=== PATIENT | female | born 1950 | race Caucasian/White ===

== ENCOUNTER 2016-06-29 05:37 | Inpatient (IN) ==
[2016-06-28 11:14] LABS: Basophils % 0.2 % (0.0-0.8); Eosinophils # 0.2 10*3/uL (0.0-0.87); Eosinophils % 3.1 % (0.00-10.9); Hematocrit 41.7 VOL% (35.7-47.0); Hemoglobin 13.6 GM/DL (12.0-16.0); Immature Granulocytes % 0.3 %; Immature Granulocytes Absolute 0.02 #; Lymphocytes # 2.4 10*3/uL (1.4-4.0); Mean Corpuscular HGB Conc 32.6 GM/DL (32-36); Mean Corpuscular Hemoglobin 34 PG (27-34); Mean Corpuscular Volume 103.2 FL (87-102); Mean Platelet Volume 8.6 FL (9.6-12.0); Monocytes # 0.5 10*3/uL (0.11-0.8); Monocytes % 7.9 % (1.7-12.7); Neutrophils # 3.3 10*3/uL (1.4-7.4); Neutrophils % 51.5 % (38.7-73.9); Platelet Count 220 T/CUMM (130-400); Red Blood Count 4.04 MC/CUMM (3.8-5.5); Red Cell Distribution Width 14.6 % (9.3-17.3); White Blood Count 6.4 T/CUMM (4-12)
[2016-06-28 11:24] LABS: PT Patient Result 10.7 SECS
[2016-06-28 11:32] LABS: Apearance,Urine CLOUDY (Clear); Bacteria,Urine Occasional /HPF (Few); Bilirubin,Urine Negative (Negative); Blood, Urine Negative (Negative); Glucose,Urine (UA) Negative (Negative); Hyaline Casts,Urine 4 /LPF (0-3); Ketones,Urine Negative (Negative); Mucus,Urine Few /LPF (Occasional); Nitrite,Urine Negative (Negative); Protein,Urine Negative; RBC,Urine 2 /HPF (0-4); Squamous Epithelial Cell,Urine Occasional /HPF (0-10); Urine Color Yellow (Yellow); Urine Specific Gravity 1.013 (1.001-1.035); Urine Urobilinogen < 2.0 EU/DL (0.2-1.0); WBC,Urine 3 /HPF (0-6)
[2016-06-28 11:53] LABS: Albumin 4.1 G/DL (3.4-5.0); Bilirubin,Total 0.4 MG/DL (0.2-1.0); Calcium 9.3 MG/DL (8.5-10.1); Osmolality,Calculated 287.8 MOS/KG (273-304); Potassium 4.7 MMOL/L (3.5-5.1); Total Protein 6.9 G/DL (6.4-8.3)
--- NOTE | 2016-06-28 14:05 | XRay Report ---
XR chest 2V Date: 06/28/2016 10:45 AM History: Respiratory preoperative evaluation Comparison: 05/06/2012 Technique: PA and lateral chest Findings: The heart is normal in size with calcification in the aortic knob. Chronic scarring in the lungs with stable mediastinum. Minimal dextroscoliosis of the thoracic spine with degenerative changes. Prior cholecystectomy and augmentation mammoplasty. Impression: No acute cardiopulmonary pathology identified. PROCEDURE INTERPRETED AT [facility] DEPARTMENT OF RADIOLOGY Final Report Signed by: Dr. Kusum Moreno
[2016-06-29] MEDS ORDERED: VANCOMYCIN INJ 1,000 MG in SODIUM CHLORIDE 0.9% 250 ML IV ONE (06:00)
[2016-06-29] MEDS ORDERED: SODIUM CHLORIDE 0.9% 100 ML IV ONE (06:26)
[2016-06-29] MEDS ORDERED: VANCOMYCIN 1,000 MG VIAL ONE (06:26)
[2016-06-29] MEDS ORDERED: ceFAZolin 1,000 MG VIAL ONE (06:26)
[2016-06-29] MEDS ORDERED: LORazepam 1 MG TABLET PO ONE (06:31)
[2016-06-29] MEDS ORDERED: FAMOTIDINE 20 MG TABLET PO ONE (06:31)
--- NOTE | 2016-06-29 06:59 | History and Physical Update ---
History and Physical Update - History and Physical H&P was reviewed, the patient examined and there: are no changes in the patients condition since last H&P was completed.
[2016-06-29] MEDS ORDERED: FAMOTIDINE 20 MG TABLET ONE (07:21)
[2016-06-29] MEDS ORDERED: LORazepam 1 MG TABLET ONE (07:21)
[2016-06-29] MEDS ORDERED: LACTATED RINGERS 1,000 ML IV SCH (07:30)
[2016-06-29] MEDS ORDERED: PROPOFOL 200 MG/20 ML VIAL IV ONE (09:39)
[2016-06-29] MEDS ORDERED: LIDOCAINE 1% 5 ML VIAL ONE (09:39)
[2016-06-29] MEDS ORDERED: oxyCODONE/ACETAMINOPHEN 5-325 MG TABLET PO PRN ×2 (10:00)
[2016-06-29] MEDS ORDERED: diphenhydrAMINE CAP 25 MG CAPSULE PO PRN (10:00)
[2016-06-29] MEDS ORDERED: MAGNESIUM HYDROXIDE SUSP 30 ML UDCUP PO PRN (10:00)
[2016-06-29] MEDS ORDERED: MORPHINE 2 MG/1 ML SYRINGE IV PRN ×2 (10:00)
[2016-06-29] MEDS ORDERED: ZALEPLON 5 MG CAPSULE PO PRN (10:00)
[2016-06-29] MEDS ORDERED: ONDANSETRON 4 MG/2 ML VIAL IV PRN (10:00)
[2016-06-29] MEDS ORDERED: BACITRACIN OINT 0.9 GM PACK TOP ONE (10:25)
[2016-06-29] MEDS ORDERED: TRANEXAMIC ACID 1,000 MG/10 ML VIAL IV ONE (10:25)
--- NOTE | 2016-06-29 11:30 | Operative Note ---
Date of procedure: 06/29/16 Procedure: DIAGNOSIS: Bilateral hip osteoarthritis, primary PROCEDURE: Left total hip arthroplasty (CPT#61803) SURGEON: Ramakrishna ANESTHESIA: Spinal PROCEDURE and FINDINGS: After adequate anesthesia was induced, the patient was placed in lateral decubitus position. Left lower extremities prepped and draped in usual sterile fashion. Posterior lateral approach to the hip was made. Skin, subcutaneous tissue and deep fascia was incised longitudinally. Gluteus rolly muscle belly was split in line with its fibers. Piriformis, external rotators and capsule was taken down as a single layer as an inverted L shaped capsulotomy. Hip was dislocated. Templated femoral neck cut was made. Acetabulum was prepared by sequentially reaming to 49 mm. A 50 mm Continuum acetabular shell was press-fit with excellent stability. 1 6.5 millimeter screw was placed with an excellent bite. 32 mm neutral Longevity liner was placed with a dome hole plug. Femur was prepared sequentially with the box osteotome, canal finder and sequential broaches to 14. Components were trialed. A Versys fiber metal tapered stem size 14 was press-fit. A 32-3.5 mm head was placed. The component was stable posteriorly and anteriorly. Capsule and external rotators were repaired to the greater trochanter with #5 Tycron. Deep fascia was closed with 0 Vicryl [id number]-[id number]-hifqi suture. Subcutaneous tissue was closed deep with a 2-0 Vicryl runner and superficially with 3-0 interrupted buried sutures. Skin was closed with sotero. Bacitracin and a sterile occlusive dressing was applied. Surgeon / Physician: Jermain Durbin Jr. Results - Labs CBC & BMP: 06/28/16 11:07 06/28/16 11:07 Discharge Plan - Discharge Medications No Action Metoprolol Tartrate 25 mg PO BEDTIME Clopidogrel [Plavix] 75 mg PO DAILY Aspirin [Ecotrin] 81 mg PO DAILY Lisinopril 5 mg PO DAILY Famotidine 40 mg PO DAILY Citalopram Hydrobromide [Citalopram HBr] 40 mg PO DAILY Lovastatin 20 mg PO BEDTIME [place]-3 Fatty Acids [Fish Oil] 1,000 mg PO DAILY W/BREAKFAST Multivit-Min/FA/Lycopene/Lut [Centrum Silver Tablet] 1 tablet PO DAILY Ibuprofen 800 mg PO Q6-8H PRN PRN Reason: Pain Celecoxib [Celebrex] 200 mg PO DAILY Garlic 1,000 mg PO DAILY [place]-3 Fatty Acids [Fish Oil] 2,000 mg PO BEDTIME - Follow Up or Referral - Forms/Instructions
[2016-06-29 11:35] LABS: Apearance,Urine CLEAR (Clear); Bilirubin,Urine Negative (Negative); Blood, Urine Negative (Negative); Glucose,Urine (UA) Negative (Negative); Ketones,Urine Negative (Negative); Mucus,Urine Occasional /LPF (Occasional); Nitrite,Urine Negative (Negative); Protein,Urine Negative; RBC,Urine 2 /HPF (0-4); Urine Color Yellow (Yellow); Urine Urobilinogen < 2.0 EU/DL (0.2-1.0); WBC,Urine <1 /HPF (0-6)
--- NOTE | 2016-06-29 12:15 | XRay Report ---
Exam: XR hip 1V LT Date: 06/29/2016 10:02 AM Comparison: None Indication: Left hip replacement Technique:[AP left hip] Findings: Recent satisfactory left total hip replacement with postoperative findings. Impression: Recent satisfactory left total hip replacement. PROCEDURE INTERPRETED AT [facility] DEPARTMENT OF RADIOLOGY Final Report Signed by: Dr. Kusum Moreno
[2016-06-29] MEDS ORDERED: MIDAZOLAM 2 MG/2 ML VIAL ONE (13:00)
[2016-06-29] MEDS ORDERED: MORPHINE 10 MG/10 ML VIAL ONE (13:00)
[2016-06-29] MEDS ORDERED: fentaNYL 100 MCG/2 ML VIAL ONE (13:00)
--- NOTE | 2016-06-29 13:09 | Anesthesia ---
Anesthesia Post OP - Post Ansesthetic Evaluation Patient seen in post op: Yes Resp: within normal limits CV: within normal limits Mental: within normal limits Temp: within normal limits [id number]-[id number]: within normal limits Nausea and Vomiting: within normal limits Pain: within normal limits
[2016-06-29] MEDS: ACETAMINOPHEN 500 MG TABLET PO SCH ×2 (14:26→20:48)
[2016-06-29] MEDS: KETOROLAC 30 MG/1 ML VIAL IV SCH ×3 (14:27→22:37)
[2016-06-29] MEDS: LACTATED RINGERS 1,000 ML IV SCH ×2 (14:34→20:48)
--- NOTE | 2016-06-29 15:39 | Orthopedic Progress Note ---
Orthopedics - Subjective Interval history: comfortable. nv ok. dressing dry. mobilize with therapy. Exam - Constitutional Vitals: Period Temp Pulse Resp BP Sys/[place]as Pulse Ox Last 24 Hr 97.2 F-98.2 F 49-65 16-20 90-151/55-86 10-100 Results - Labs CBC & BMP: 06/28/16 11:07 06/28/16 11:07
[2016-06-29] MEDS: DOCUSATE SODIUM 100 MG CAPSULE PO SCH (20:49)
[2016-06-29] MEDS: METOPROLOL TARTRATE 25 MG TABLET PO SCH (20:49)
--- NOTE | 2016-06-29 22:02 | Internal Medicine Consult Note ---
Assessment and Plan (1) Low blood pressure, not hypotension Status: Acute Current Visit: Yes (2) Status post left hip replacement Status: Acute Current Visit: Yes (3) CAD (coronary artery disease) Status: Chronic Current Visit: Yes Qualifiers: Coronary Disease-Associated Artery/Lesion type: [place] artery [place] vs. transplanted heart: [place] heart Associated angina: without angina Qualified Code(s): I25.10 - Atherosclerotic heart disease of [place] coronary artery without angina pectoris (4) Stented coronary artery Status: Chronic Current Visit: Yes History of Present Illness - Data of Consult Consult date: 06/29/16 Requesting Physician: Jermain Durbin Jr. Primary care physician: Gabriela Dorman - Consult Narrative Reason for consult: courtesy History of present illness: Ms. Cervantes is a 65 year old female with history of OA, dyslipidemia, HTN, CAD with four stents placed, NE, Plavix therapy, who is here in hospital to have left hip arthroplasty per Dr. Durbin. She was to be seen in the clinic to establish, but elected to have hip replacement first. Will follow her here in hospital. CC: Jermain Durbin Jr., - Home Medications and Allergies Home Medications: Home Medications Medication Instructions Recorded Confirmed Type Aspirin [Ecotrin] 81 mg PO DAILY 10/18/15 06/29/16 History Citalopram Hydrobromide 40 mg PO DAILY 10/18/15 06/29/16 History [Citalopram HBr] Clopidogrel [Plavix] 75 mg PO DAILY 10/18/15 06/29/16 History Famotidine 40 mg PO DAILY 10/18/15 06/29/16 History Lisinopril 5 mg PO DAILY 10/18/15 06/29/16 History Lovastatin 20 mg PO BEDTIME 10/18/15 06/29/16 History Metoprolol Tartrate 25 mg PO BEDTIME 10/18/15 06/29/16 History [place]-3 Fatty Acids [Fish Oil] 1,000 mg PO DAILY W/BREAKFAST 10/18/15 06/29/16 History Multivit-Min/FA/Lycopene/Lut 1 tablet PO DAILY 12/22/15 06/29/16 History [Centrum Silver Tablet] Celecoxib [Celebrex] 200 mg PO DAILY 06/28/16 06/29/16 History Garlic 1,000 mg PO DAILY 06/28/16 06/29/16 History Ibuprofen 800 mg PO Q6-8H PRN 06/28/16 06/29/16 History [place]-3 Fatty Acids [Fish Oil] 2,000 mg PO BEDTIME 06/28/16 06/29/16 History Allergies/Adverse Reactions: Allergies Allergy/AdvReac Type Severity Reaction Status Date / Time codeine Allergy RASH Verified 10/18/15 14:49 - Musculoskeletal Musculoskeletal: Present: arthralgias Medical,Surgical,& Family Hx - Medical History Cardio: History of: CAD, Hypertension, NE (Over 10 yrs ago), 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) Psychological: History of: Anxiety Disorders Neurology: No history of: Seizures HEENT: History of: Dental Problems (Full Set Dentures) Endocrine: History of: Dyslipidemia Respiratory: No history of: Respiratory Problems (Flu Vac Fall 2015) Comment Only: Pneumonia (Pneum Vac Fall 2015) Gastrointestinal: History of: GERD Musculoskeletal: History of: Back/Neck Problems (Back Pain), Musculoskeletal Problems (OA) Other: No history of: Anesthesia Reactions, Cancer - Surgical History Cardiac Surgeries: Sugical HX of: Cardiac Catheterization (stent times 4) HEENT Surgeries: Surgical HX of: Eye Surgery (Bilateral Implants Catarcts) Abdominal Surgeries: Surgical HX of: Cholecystectomy, Colonoscopy, EGD Reproductive Surgeries: Surgical HX of;: Hysterectomy (Complete) Orthopedic Surgeries: Comment Only: Total Hip Replacement (06/29/[address] Durbin) - Family History Family History: Reports;: Family Heart Disease (Brother x2; Mother), Family Hypertension (Brothers), Family Stroke (Brother), Additional Family History ( Brother Aneurysm) Denies;: Family Anesthesia Reaction, Family Cancer, Family Diabetes, Family Hematology - Social History Smoking Status: Current every day smoker Frequency of Alcohol Use: Frequently Type of Drug Use: None Marital Status: Lives With:: Spouse Functional capacity: independent ambulation Exam (Progress Note) - Constitutional Vitals: Period Temp Pulse Resp BP Sys/Arias Pulse Ox Last 24 Hr 97.2 F-99.1 F 49-66 16-20 90-151/50-86 10-100 General appearance: no acute distress - Head Head exam: Present: normocephalic - Eye Eye exam: Present: EOMI - Respiratory Respiratory exam: Present: clear to auscultation bilaterally - Cardiovascular Cardiovascular exam: Present: regular rate and rhythm - GI/Abdominal GI/Abdominal exam: Present: soft. Absent: tenderness - Extremities Exam Extremities exam: Absent: edema - Neurological Exam Neurological exam: Present: other (awake; recent anesthesia) - Psychiatric Psychiatric exam: Present: normal mood - Skin Skin exam: Present: warm, dry Results - Labs CBC & BMP: 06/28/16 11:07 06/28/16 11:07
[2016-06-29] MEDS: LOVASTATIN 20 MG TABLET PO SCH (22:37)
[2016-06-29] MEDS: OMEGA 3 ACID ETHYL ESTERS 1 GM CAPSULE PO SCH (22:37)
[2016-06-30] MEDS: ACETAMINOPHEN 500 MG TABLET PO SCH ×2 (02:17→09:23)
[2016-06-30 03:42] LABS: Basophils % 0.2 % (0.0-0.8); Eosinophils # 0.2 10*3/uL (0.0-0.87); Eosinophils % 3.5 % (0.00-10.9); Hematocrit 32.5 VOL% (35.7-47.0); Hemoglobin 10.6 GM/DL (12.0-16.0); Immature Granulocytes % 0.3 %; Immature Granulocytes Absolute 0.02 #; Lymphocytes # 2.3 10*3/uL (1.4-4.0); Lymphocytes % 36.3 % (21.3-54.2); Mean Corpuscular HGB Conc 32.6 GM/DL (32-36); Mean Corpuscular Hemoglobin 33 PG (27-34); Mean Corpuscular Volume 102.2 FL (87-102); Mean Platelet Volume 8.9 FL (9.6-12.0); Monocytes # 0.6 10*3/uL (0.11-0.8); Neutrophils # 3.1 10*3/uL (1.4-7.4); Neutrophils % 49.7 % (38.7-73.9); Platelet Count 177 T/CUMM (130-400); Red Blood Count 3.18 MC/CUMM (3.8-5.5); Red Cell Distribution Width 14.8 % (9.3-17.3); White Blood Count 6.2 T/CUMM (4-12)
[2016-06-30 04:07] LABS: Calcium 8.1 MG/DL (8.5-10.1); Osmolality,Calculated 290.7 MOS/KG (273-304); Potassium 4.1 MMOL/L (3.5-5.1)
[2016-06-30] MEDS: KETOROLAC 30 MG/1 ML VIAL IV SCH (04:14)
[2016-06-30] MEDS: FONDAPARINUX 2.5 MG/0.5 ML SYRINGE SUBCUT SCH (06:12)
[2016-06-30] MEDS: LACTATED RINGERS 1,000 ML IV SCH (06:12)
--- NOTE | 2016-06-30 07:27 | Orthopedic Progress Note ---
Orthopedics - Subjective Interval history: comfortable dressing dry lle nv ok mobilize with therapy. Exam - Constitutional Vitals: Period Temp Pulse Resp BP Sys/Arias Pulse Ox Last 24 Hr 95.1 F-99.2 F 49-66 16-94 90-151/47-86 10-100 Results - Labs CBC & BMP: 06/30/16 03:28 06/30/16 03:28
--- NOTE | 2016-06-30 08:43 | Family Practice Progress Note ---
Family Practice - PN: Subj Interval history: Patient seen this morning and she is stable. Wound site looks good dressing is dry. She is not having any significant pain at present. No acute distress and has been eating fairly well. Vital signs are stable and her lab was noted. Exam (Progress Note) - Constitutional Vitals: Period Temp Pulse Resp BP Sys/Arias Pulse Ox Last 24 Hr 95.1 F-99.2 F 49-66 16-94 90-151/47-86 10-100 Exam: Generalized stable no acute distress is very alert and oriented HEENT negative neck supple trachea midline Lungs are clear no shortness of breath Abdomen soft nondistended Left hip dressing is intact and dry Results - Labs CBC & BMP: 06/30/16 03:28 06/30/16 03:28
[2016-06-30] MEDS ORDERED: LISINOPRIL 5 MG TABLET PO SCH (09:00)
[2016-06-30] MEDS ORDERED: ACETAMINOPHEN 500 MG TABLET ONE (09:11)
[2016-06-30] MEDS: DOCUSATE SODIUM 100 MG CAPSULE PO SCH ×3 (09:23→20:51)
[2016-06-30] MEDS: MULTIVITAMIN (CENTRUM) TABLET PO SCH (09:23)
[2016-06-30] MEDS: OMEGA 3 ACID ETHYL ESTERS 1 GM CAPSULE PO SCH ×2 (09:23→20:51)
[2016-06-30] MEDS: CITALOPRAM 40 MG TABLET PO SCH (09:24)
[2016-06-30] MEDS: ASPIRIN EC 81 MG TABLET PO SCH (09:24)
[2016-06-30] MEDS: FAMOTIDINE 20 MG TABLET PO SCH (09:24)
[2016-06-30] MEDS: Garlic [Garlic] 1,000 MG PO SCH (09:26)
[2016-06-30] MEDS ORDERED: ACETAMINOPHEN 325 MG TABLET PO PRN (10:01)
[2016-06-30] MEDS: METOPROLOL TARTRATE 25 MG TABLET PO SCH (20:51)
[2016-06-30] MEDS: LOVASTATIN 20 MG TABLET PO SCH (20:52)
[2016-07-01 03:44] LABS: Basophils % 0.1 % (0.0-0.8); Eosinophils # 0.2 10*3/uL (0.0-0.87); Eosinophils % 2.3 % (0.00-10.9); Hematocrit 34.4 VOL% (35.7-47.0); Hemoglobin 11.6 GM/DL (12.0-16.0); Immature Granulocytes % 0.5 %; Immature Granulocytes Absolute 0.04 #; Lymphocytes # 2.3 10*3/uL (1.4-4.0); Lymphocytes % 25.7 % (21.3-54.2); Mean Corpuscular HGB Conc 33.7 GM/DL (32-36); Mean Corpuscular Hemoglobin 33 PG (27-34); Mean Corpuscular Volume 98.6 FL (87-102); Mean Platelet Volume 9.4 FL (9.6-12.0); Monocytes # 0.8 10*3/uL (0.11-0.8); Monocytes % 9.5 % (1.7-12.7); Neutrophils # 5.5 10*3/uL (1.4-7.4); Neutrophils % 61.9 % (38.7-73.9); Platelet Count 200 T/CUMM (130-400); Red Blood Count 3.49 MC/CUMM (3.8-5.5); Red Cell Distribution Width 14.7 % (9.3-17.3); White Blood Count 8.8 T/CUMM (4-12)
[2016-07-01] MEDS: FONDAPARINUX 2.5 MG/0.5 ML SYRINGE SUBCUT SCH (06:08)
--- NOTE | 2016-07-01 07:31 | Orthopedic Progress Note ---
Orthopedics - Subjective Interval history: Able to walk in [place] yesterday. Complaining of pain. dressing dry. nv ok. Continue therapy. Discharge planning. Exam - Constitutional Vitals: Period Temp Pulse Resp BP Sys/Arias Pulse Ox Last 24 Hr 95 F-98.4 F 63-72 16-20 97-144/59-74 92-98 Results - Labs CBC & BMP: 07/01/16 03:26 06/30/16 03:28
--- NOTE | 2016-07-01 07:51 | Discharge Summary ---
Hospital Course - Hospital Course Hospital Course: Mrs. Cervantes was admitted after undergoing an uncomplicated left total hip arthroplasty. She received perioperative DVT and antimicrobial prophylaxis. She received physical therapy. nv ok. scant ss drainage. Discharge Plan - Discharge Data Discharge Diet: advance to your usual diet Activity: ambulate only with your walker Hygiene: may shower Weight Bearing at Discharge: weight bear as tolerated - Discharge Medications Continue Metoprolol Tartrate 25 mg PO BEDTIME Clopidogrel [Plavix] 75 mg PO DAILY Aspirin [Ecotrin] 81 mg PO DAILY Lisinopril 5 mg PO DAILY Famotidine 40 mg PO DAILY Citalopram Hydrobromide [Citalopram HBr] 40 mg PO DAILY Lovastatin 20 mg PO BEDTIME [place]-3 Fatty Acids [Fish Oil] 1,000 mg PO DAILY W/BREAKFAST Multivit-Min/FA/Lycopene/Lut [Centrum Silver Tablet] 1 tablet PO DAILY Celecoxib [Celebrex] 200 mg PO DAILY Garlic 1,000 mg PO DAILY [place]-3 Fatty Acids [Fish Oil] 2,000 mg PO BEDTIME Discontinued Ibuprofen 800 mg PO Q6-8H PRN PRN Reason: Pain - Follow Up or Referral - Forms/Instructions Additional Discharge Instructions: Posterior hip precautions for 3 months. Daily dry dressing changes. Arrange for walker and bedside commode for home use. Wear AMY hose for 1 month. Follow-up appointment in 4 weeks. Prescription for [place] 7.5-3 tablets was written. Restart Plavix tomorrow. Discontinue sotero and Steri-Strip wound on July 13, 2016. Prescription for [place] 7.5 with 30 tablets was written. Exam - Constitutional Vitals: Period Temp Pulse Resp BP Sys/Arias Pulse Ox Last 24 Hr 95 F-98.4 F 63-72 16-20 97-144/59-74 92-98 Discharge Results Procedures and tests throughout hospitalization: Pending Orders 07/02/16 04:00 Comp Blood Count Auto Diff IN AM Labs on day of discharge: Labs from last 24 hours 07/01/16 03:26 WBC 8.8 D RBC 3.49 L Hgb 11.6 L Hct 34.4 L MCV 98.6 MCH 33 MCHC 33.7 RDW 14.7 Plt Count 200 MPV 9.4 L Neut % (Auto) 61.9 Lymph % (Auto) 25.7 [place] % (Auto) 9.5 Eos % (Auto) 2.3 Baso % (Auto) 0.1 Neut # (Auto) 5.5 Lymph # (Auto) 2.3 [place] # (Auto) 0.8 Eos # (Auto) 0.2 Baso # (Auto) 0.0 Immature Gran % 0.5 Nucleated RBC % 0.0 Immature Gran # 0.04 Nucleated RBCs # 0.00 DS: Provider Date of admission: 06/29/16 10:00 Primary care physician: Gabriela Dorman DO Attending physician on admission: Jermain Durbin Jr., Consults: 06/29/16 10:00 Consult to Case Mgmt/Social Srvs [CONS] Routine Reason for Case Mgmt/Social Srvs: Rehab Home Health Equipment Consult Comment: Bedside Commode, CPM, Walker Consult to Occupational Therapy [CONS] Routine Reason for Occupational Therapy: Evaluate and Treat Consult Comment: ADL's Consult to Physical Therapy [CONS] Routine Reason for Physical Therapy: Evaluate and Treat Gait Training Start Therapy: Today Consult Comment: hip precautions, wbat 06/29/16 12:58 Consult to Pharmacy [CONS] Routine Reason for Pharmacy Consult: Adjust Meds Renal Funct 06/29/16 15:38 Consult to Physician [CONS] Routine Comment: courtesy, s/p left rudolph Consulting Provider: Gabriela Dorman Consult Notification Comment: pt known to physician; physician saw pt on and report made 06/29/16 16:25 Consult to Pastoral Services [CONS] Routine Comment: Pastoral Screen: Declines Visit Pastoral Screen Source of Request: Family Discharging clinician: Jermain Durbin Jr., Expected date of discharge: 07/02/16
[2016-07-01] MEDS: OMEGA 3 ACID ETHYL ESTERS 1 GM CAPSULE PO SCH ×2 (10:47→20:36)
[2016-07-01] MEDS: CITALOPRAM 40 MG TABLET PO SCH (10:48)
[2016-07-01] MEDS: ASPIRIN EC 81 MG TABLET PO SCH (10:48)
[2016-07-01] MEDS: FAMOTIDINE 20 MG TABLET PO SCH (10:48)
[2016-07-01] MEDS: MULTIVITAMIN (CENTRUM) TABLET PO SCH (10:48)
[2016-07-01] MEDS: Garlic [Garlic] 1,000 MG PO SCH (10:49)
[2016-07-01] MEDS: DOCUSATE SODIUM 100 MG CAPSULE PO SCH ×2 (10:49→21:26)
--- NOTE | 2016-07-01 10:52 | Family Practice Progress Note ---
Family Practice - PN: Subj Interval history: Patient seen this morning. She is doing well except for a little bit of pain, which is to be expected. Denies any fever chills nausea vomiting or diarrhea. Has been up and having good bowel and bladder function. His wound site looks good and H&H's stable Exam (Progress Note) - Constitutional Vitals: Period Temp Pulse Resp BP Sys/Arias Pulse Ox Last 24 Hr 95 F-98.4 F 63-72 16-20 107-144/60-74 93-98 Exam: Generalized stable no acute distress is very alert and oriented HEENT negative neck supple trachea midline Lungs are clear no shortness of breath Abdomen soft nondistended Left hip dressing is intact and dry Results - Labs CBC & BMP: 07/01/16 03:26 06/30/16 03:28 Assessment and Plan (1) Low blood pressure, not hypotension Status: Acute Assessment and plan: 07/01/2016: Stable vitals are present Current Visit: Yes (2) Status post left hip replacement Status: Acute Assessment and plan: 07/01/2016: Hip site and dressing in tact and doing well, patient has been up Current Visit: Yes (3) CAD (coronary artery disease) Status: Chronic Assessment and plan: 3191 7: No chest pain Current Visit: Yes Qualifiers: Coronary Disease-Associated Artery/Lesion type: [place] artery [place] vs. transplanted heart: [place] heart Associated angina: without angina Qualified Code(s): I25.10 - Atherosclerotic heart disease of [place] coronary artery without angina pectoris
[2016-07-01] MEDS: LOVASTATIN 20 MG TABLET PO SCH (20:36)
[2016-07-01] MEDS: METOPROLOL TARTRATE 25 MG TABLET PO SCH (20:37)
[2016-07-02 05:58] LABS: Basophils % 0.2 % (0.0-0.8); Eosinophils # 0.2 10*3/uL (0.0-0.87); Eosinophils % 3.1 % (0.00-10.9); Hematocrit 36.2 VOL% (35.7-47.0); Immature Granulocytes % 0.5 %; Immature Granulocytes Absolute 0.03 #; Lymphocytes # 2.2 10*3/uL (1.4-4.0); Lymphocytes % 33.2 % (21.3-54.2); Mean Corpuscular HGB Conc 33.1 GM/DL (32-36); Mean Corpuscular Hemoglobin 34 PG (27-34); Mean Corpuscular Volume 101.7 FL (87-102); Mean Platelet Volume 9.2 FL (9.6-12.0); Monocytes # 0.7 10*3/uL (0.11-0.8); Monocytes % 10.8 % (1.7-12.7); Neutrophils # 3.4 10*3/uL (1.4-7.4); Neutrophils % 52.2 % (38.7-73.9); Platelet Count 213 T/CUMM (130-400); Red Blood Count 3.56 MC/CUMM (3.8-5.5); Red Cell Distribution Width 14.8 % (9.3-17.3); White Blood Count 6.5 T/CUMM (4-12)
[2016-07-02] MEDS: FONDAPARINUX 2.5 MG/0.5 ML SYRINGE SUBCUT SCH (06:15)
[2016-07-02] MEDS: OMEGA 3 ACID ETHYL ESTERS 1 GM CAPSULE PO SCH (08:58)
[2016-07-02] MEDS: ASPIRIN EC 81 MG TABLET PO SCH (08:58)
[2016-07-02] MEDS: MULTIVITAMIN (CENTRUM) TABLET PO SCH (08:58)
[2016-07-02] MEDS: CITALOPRAM 40 MG TABLET PO SCH (08:58)
[2016-07-02] MEDS: DOCUSATE SODIUM 100 MG CAPSULE PO SCH (08:58)
[2016-07-02] MEDS: FAMOTIDINE 20 MG TABLET PO SCH (08:59)
--- NOTE | 2016-07-02 10:18 | Pathology Report from [facility] ---
ACCESSION # : [id number] PATIENT NAME : Aristeo Cervantes ORDERING DR : CRISTINA POWELL MD CLINICAL HX: LT hip osteoarthritis POST-OP DX: Same SPECIMEN INFO: LT hip bone & tissue GROSS DESCRIPTION: Received in formalin labeled "ARISTEO CERVANTES" consists of a 3.9 x 4.2 x 5.1 cm femoral head. The articular surface is degenerative with peripheral osteophyte formation and cartilage lipping present with an approx. 2 cm area that can be partially lifted away and may represent surgical manipulation. The cut surface is smooth mckinney and trabeculated with mild bone softening appreciated. Retail Assistant Manager sections are submitted in one cassette following decalcification. DIAGNOSIS FOR ARISTEO CERVANTES: Left hip joint showing changes of degenerative joint disease/ osteoarthritis. SERVICE DATE: 06/29/2016 REPORT DATE: 07/02/2016 PATHOLOGIST: Yifan Pastrana M.D. [facility] SYSTEM[facility]imy
[2016-07-02 15:40] VITALS: BP 110/64
== END 2016-07-02 14:15 | disposition home or self-care (01) | DRG 470 ==
LOC: N.OR 05:37 → N.SDSINP 05:38 → N.3E 10:00 → EDSTATUS 10:00 → N.3E 12:43
PROVIDERS: ADMIT Orthopaedic Surgery; ATTEND Orthopaedic Surgery

== ENCOUNTER 2016-10-22 05:36 | Inpatient (IN) ==
[2016-10-05 10:45] LABS: Basophils % 0.4 % (0.0-0.8); Eosinophils # 0.3 10*3/uL (0.0-0.87); Eosinophils % 6.1 % (0.00-10.9); Hematocrit 42.8 VOL% (35.7-47.0); Hemoglobin 14.8 GM/DL (12.0-16.0); Immature Granulocytes % 0.2 %; Immature Granulocytes Absolute 0.01 #; Lymphocytes # 2.4 10*3/uL (1.4-4.0); Mean Corpuscular HGB Conc 34.6 GM/DL (32-36); Mean Corpuscular Hemoglobin 34 PG (27-34); Mean Corpuscular Volume 98.6 FL (87-102); Mean Platelet Volume 8.8 FL (9.6-12.0); Monocytes # 0.5 10*3/uL (0.11-0.8); Monocytes % 10.2 % (1.7-12.7); Neutrophils % 38.1 % (38.7-73.9); Platelet Count 250 T/CUMM (130-400); Red Blood Count 4.34 MC/CUMM (3.8-5.5); Red Cell Distribution Width 13.1 % (9.3-17.3); White Blood Count 5.2 T/CUMM (4-12)
[2016-10-05 10:57] LABS: Apearance,Urine CLOUDY (Clear); Bacteria,Urine Occasional /HPF (Few); Bilirubin,Urine Negative (Negative); Blood, Urine Small mg/dL (Negative); Glucose,Urine (UA) Negative (Negative); Ketones,Urine Negative (Negative); Mucus,Urine Occasional /LPF (Occasional); Nitrite,Urine Negative (Negative); Protein,Urine Negative; RBC,Urine 5 /HPF (0-4); Squamous Epithelial Cell,Urine Occasional /HPF (0-10); Urine Color Yellow (Yellow); Urine Specific Gravity 1.015 (1.001-1.035); Urine Urobilinogen < 2.0 EU/DL (0.2-1.0); WBC,Urine 1 /HPF (0-6)
--- NOTE | 2016-10-05 11:01 | XRay Report ---
XR chest 2V Indication: Respiratory preoperative evaluation Comparison: None available Findings: The heart and mediastinum are normal in size and configuration. The pulmonary vascularity is normal in caliber. No lung infiltrates, effusions, pneumothorax or other abnormality is demonstrated. Impression: Normal chest x-ray PROCEDURE INTERPRETED AT [facility] DEPARTMENT OF RADIOLOGY Final Report Signed by: Dr. Jeffrey Pompa
[2016-10-05 11:09] LABS: Eosinophils 10 % (0-10); Lymphocytes 53 % (20-55); Segmented Neutrophils 27 % (50-85); Total Cells Counted 100
[2016-10-05 11:10] LABS: Hypochromasia 1+; Platelet Estimate Normal
[2016-10-05 11:30] LABS: Calcium 9.7 MG/DL (8.5-10.1); Osmolality,Calculated 278.5 MOS/KG (273-304); Potassium 4.7 MMOL/L (3.5-5.1); Total Protein 7.2 G/DL (6.4-8.3)
--- NOTE | 2016-10-05 12:03 | EKG Report ---
Stationary ECG Study [facility] Test Date: 10/05/2016 11:03:43 AM Pat Name: ARISTEO PONCE Department: Room: Gender: F Chiropractic Care: ARI 10-22-16 : 1950 Requested by: Jermain Barnes Order Number: [id number] Lidia MD: MIKI CHAVEZ Intervals [place] Rate: 58 P: 64 AR: 164 QRS: 73 QRSD: 83 T: 64 QT: 429 QTc: 427 Interpretive Statements SINUS RHYTHM Electronically Signed On 10-05-16 13:51:16 CDT by MIKI CHAVEZ [email or web address]
[2016-10-22] MEDS ORDERED: VANCOMYCIN INJ 1,000 MG in SODIUM CHLORIDE 0.9% 250 ML IV ONE ×2 (06:00→17:59)
[2016-10-22] MEDS ORDERED: FAMOTIDINE 20 MG/2 ML VIAL IV ONE ×2 (06:30→07:15)
[2016-10-22] MEDS ORDERED: LORazepam 1 MG TABLET PO ONE (06:30)
[2016-10-22] MEDS ORDERED: BACITRACIN OINT 0.9 GM PACK TOP ONE (06:32)
[2016-10-22] MEDS ORDERED: TRANEXAMIC ACID 1,000 MG/10 ML VIAL IV ONE (06:41)
--- NOTE | 2016-10-22 06:52 | History and Physical Update ---
History and Physical Update - History and Physical H&P was reviewed, the patient examined and there: are no changes in the patients condition since last H&P was completed. - Physical Exam Mental Status: alert and oriented Heart: regular rate and rhythm Lung: clear to auscultation
[2016-10-22] MEDS ORDERED: ceFAZolin 1,000 MG VIAL ONE (06:53)
[2016-10-22] MEDS ORDERED: LORazepam 1 MG TABLET ONE (06:53)
[2016-10-22] MEDS ORDERED: VANCOMYCIN 1,000 MG VIAL ONE (06:53)
[2016-10-22] MEDS ORDERED: FAMOTIDINE 20 MG TABLET ONE (06:54)
[2016-10-22] MEDS ORDERED: SODIUM CHLORIDE 0.9% 100 ML IV ONE (06:54)
[2016-10-22] MEDS ORDERED: MORPHINE 10 MG/10 ML VIAL ONE (07:16)
[2016-10-22] MEDS ORDERED: LACTATED RINGERS 1,000 ML IV SCH (07:30)
[2016-10-22] MEDS ORDERED: PHENYLEPHRINE 1 MG/10 ML SYRINGE IV ONE (08:07)
[2016-10-22] MEDS ORDERED: PROPOFOL 200 MG/20 ML VIAL IV ONE (08:07)
[2016-10-22] MEDS ORDERED: diphenhydrAMINE 50 MG/1 ML VIAL IV PRN (09:09)
[2016-10-22] MEDS ORDERED: ONDANSETRON 4 MG/2 ML VIAL IV PRN (09:09)
[2016-10-22] MEDS ORDERED: hydrOXYzine HCL 25 MG/1 ML VIAL IM PRN (09:09)
--- NOTE | 2016-10-22 09:56 | Anesthesia Post-Op ---
Anesthesia Post OP - Post Ansesthetic Evaluation Patient seen in post op: Yes Resp: within normal limits CV: within normal limits Mental: within normal limits Temp: within normal limits Jdzl-[id number]-[id number]: within normal limits Nausea and Vomiting: within normal limits Pain: within normal limits
[2016-10-22] MEDS ORDERED: MAGNESIUM HYDROXIDE SUSP 30 ML UDCUP PO PRN (09:58)
[2016-10-22] MEDS ORDERED: oxyCODONE IR 5 MG TABLET PO PRN ×2 (09:58)
[2016-10-22] MEDS ORDERED: diphenhydrAMINE CAP 25 MG CAPSULE PO PRN (09:58)
[2016-10-22] MEDS ORDERED: MORPHINE 2 MG/1 ML SYRINGE IV PRN ×2 (09:58)
[2016-10-22] MEDS ORDERED: MIDAZOLAM 2 MG/2 ML VIAL ONE (10:00)
[2016-10-22] MEDS ORDERED: fentaNYL 100 MCG/2 ML VIAL ONE (10:01)
[2016-10-22] MEDS ORDERED: KETAMINE 500 MG/10 ML VIAL ONE (10:01)
[2016-10-22 10:04] LABS: Apearance,Urine CLEAR (Clear); Bilirubin,Urine Negative (Negative); Blood, Urine Small mg/dL (Negative); Glucose,Urine (UA) Negative (Negative); Ketones,Urine Negative (Negative); Mucus,Urine Occasional /LPF (Occasional); Nitrite,Urine Negative (Negative); Protein,Urine Negative; RBC,Urine 1 /HPF (0-4); Urine Color Straw (Yellow); Urine Specific Gravity 1.006 (1.001-1.035); Urine Urobilinogen < 2.0 EU/DL (0.2-1.0)
--- NOTE | 2016-10-22 10:06 | Operative Note ---
Date of procedure: 10/22/16 Procedure: DIAGNOSIS: Right hip primary osteoarthritis PROCEDURE: Right total hip arthroplasty (CPT#47185) SURGEON: Ramakrishna ANESTHESIA: Spinal PROCEDURE and FINDINGS: After adequate anesthesia was induced, the patient was placed in lateral decubitus position. Left lower extremities prepped and draped in usual sterile fashion. Posteriolateral approach to the hip was made. Skin, subcutaneous tissue and deep fascia was incised longitudinally. Gluteus rolly muscle belly was split in line with its fibers. Piriformis, external rotators and capsule were taken down as a single layer as an inverted L shaped capsulotomy. Hip was dislocated. Templated femoral neck cut was made. Acetabulum was prepared by sequentially reaming to 51 mm. A 52 mm Continuum acetabular shell was press-fit with excellent stability. 1 6.5 millimeter screw was placed with an excellent bite. 32 mm neutral Longevity liner was placed with a dome hole plug. Femur was prepared sequentially with the box osteotome, canal finder and sequential broaches to 14. Components were trialed. A size 14 Versys fiber metal tapered stem was press-fit. A 32-3.5 mm head was placed. The component was stable posteriorly and anteriorly. Capsule was repaired to itself with #5 Tycron. During preparation of the femur, the posterior portion of the greater trochanter was fractured. Ordeiu-aw-zwocb #5 Tycron was used through the vastus lateralis aponeurosis and gluteus medius tendon to protect the fracture. Deep fascia was closed with 0 Vicryl figure-of- eight suture. Subcutaneous tissue was closed deep with a 2-0 Vicryl runner and superficially with 3-0 interrupted buried sutures. Skin was closed with sotero. Bacitracin and a sterile occlusive dressing was applied. Surgeon / Physician: Jermain Durbin Jr. Results - Labs CBC & BMP: 10/05/16 10:32 10/05/16 10:32 Discharge Plan - Discharge Medications No Action Metoprolol Tartrate 25 mg PO BEDTIME Clopidogrel [Plavix] 75 mg PO DAILY Aspirin [Ecotrin] 81 mg PO DAILY Lisinopril 5 mg PO DAILY Famotidine 40 mg PO DAILY Citalopram Hydrobromide [Citalopram HBr] 40 mg PO DAILY Lovastatin 20 mg PO BEDTIME [place]-3 Fatty Acids [Fish Oil] 1,000 mg PO DAILY W/BREAKFAST Multivit-Min/FA/Lycopen/Lutein [Centrum Silver Tablet] 1 tablet PO DAILY Celecoxib [Celebrex] 200 mg PO DAILY Garlic 1,000 mg PO DAILY Ibuprofen 800 mg PO Q8HR PRN PRN Reason: Pain - Follow Up or Referral - Forms/Instructions
--- NOTE | 2016-10-22 11:00 | XRay Report ---
XR hip 1V RT Clinical Information: Joint replacement (right hip), Postop Comparison: Prior radiographs06/29/2016 Findings: Postsurgical changes are noted with right total hip arthroplasty hardware now noted in place. Overlying soft tissue sotero are noted. There is minimal gas and soft tissue thickening about the greater trochanter, as expected. No suspicious osseous or soft tissue lesions are identified. Impression: Post surgical changes without evidence of acute convocation. PROCEDURE INTERPRETED AT [facility] DEPARTMENT OF RADIOLOGY Final Report Signed by: Darrin Guevara
[2016-10-22] MEDS: KETOROLAC 30 MG/1 ML VIAL IV SCH ×3 (11:25→21:15)
[2016-10-22] MEDS: LACTATED RINGERS 1,000 ML IV SCH ×2 (11:28→20:18)
[2016-10-22] MEDS: ACETAMINOPHEN 500 MG TABLET PO SCH ×2 (13:09→20:22)
--- NOTE | 2016-10-22 14:10 | Orthopedic Progress Note ---
Orthopedics - Subjective Interval history: comfortable. nv ok. dressing dry. continue per orders. Exam - Constitutional Vitals: Period Temp Pulse Resp BP Sys/Arias Pulse Ox Last 24 Hr 97.0 F-98.2 F 51-77 14-20 75-127/44-84 94-100 Results - Labs CBC & BMP: 10/05/16 10:32 10/05/16 10:32 Quality Measures - VTE Contraindication to Pharmacological VTE Prophylaxis: Already on Theraputic Agent , No Prophylaxis Needed
[2016-10-22] MEDS: DOCUSATE SODIUM 100 MG CAPSULE PO SCH (20:23)
[2016-10-22] MEDS: LOVASTATIN 20 MG TABLET PO SCH (20:23)
[2016-10-22] MEDS: METOPROLOL TARTRATE 25 MG TABLET PO SCH (20:23)
[2016-10-23] MEDS: ACETAMINOPHEN 500 MG TABLET PO SCH ×2 (01:18→08:01)
[2016-10-23] MEDS: KETOROLAC 30 MG/1 ML VIAL IV SCH (03:28)
[2016-10-23 06:21] LABS: Basophils % 0.2 % (0.0-0.8); Eosinophils # 0.2 10*3/uL (0.0-0.87); Eosinophils % 3.1 % (0.00-10.9); Hematocrit 33.5 VOL% (35.7-47.0); Hemoglobin 11.2 GM/DL (12.0-16.0); Immature Granulocytes % 0.3 %; Immature Granulocytes Absolute 0.02 #; Lymphocytes % 31.5 % (21.3-54.2); Mean Corpuscular HGB Conc 33.4 GM/DL (32-36); Mean Corpuscular Hemoglobin 34 PG (27-34); Mean Corpuscular Volume 100.3 FL (87-102); Mean Platelet Volume 9.5 FL (9.6-12.0); Monocytes # 0.7 10*3/uL (0.11-0.8); Monocytes % 10.9 % (1.7-12.7); Neutrophils # 3.5 10*3/uL (1.4-7.4); Platelet Count 174 T/CUMM (130-400); Red Blood Count 3.34 MC/CUMM (3.8-5.5); Red Cell Distribution Width 13.6 % (9.3-17.3); White Blood Count 6.4 T/CUMM (4-12)
[2016-10-23 06:47] LABS: Calcium 8.8 MG/DL (8.5-10.1); Potassium 3.8 MMOL/L (3.5-5.1)
[2016-10-23 07:15] LABS: Band Neutrophils 6 % (0-10); Eosinophils 3 % (0-10); Lymphocytes 49 % (20-55); Segmented Neutrophils 31 % (50-85); Total Cells Counted 100
[2016-10-23 07:16] LABS: Hypochromasia 1+; Platelet Estimate Adequate; Target Cells Slight
[2016-10-23] MEDS: LACTATED RINGERS 1,000 ML IV SCH (07:21)
--- NOTE | 2016-10-23 07:29 | Orthopedic Progress Note ---
Orthopedics - Subjective Interval history: comfortable. nv ok. dressing dry. mobilize with therapy. plan home with hh. d/c smith Exam - Constitutional Vitals: Period Temp Pulse Resp BP Sys/Arias Pulse Ox Last 24 Hr 96.4 F-98.5 F 53-81 14-20 75-118/44-84 94-100 Results - Labs CBC & BMP: 10/23/16 05:58 10/23/16 05:58 Quality Measures - VTE Contraindication to Pharmacological VTE Prophylaxis: Already on Theraputic Agent , No Prophylaxis Needed
[2016-10-23] MEDS: OMEGA 3 ACID ETHYL ESTERS 1 GM CAPSULE PO SCH (08:01)
[2016-10-23] MEDS: DOCUSATE SODIUM 100 MG CAPSULE PO SCH ×2 (08:01→21:31)
[2016-10-23] MEDS: CITALOPRAM 40 MG TABLET PO SCH (08:01)
[2016-10-23] MEDS: MULTIVITAMIN (CENTRUM) TABLET PO SCH (08:01)
[2016-10-23] MEDS: CLOPIDOGREL 75 MG TABLET PO SCH (08:01)
[2016-10-23] MEDS: ASPIRIN EC 81 MG TABLET PO SCH (08:02)
[2016-10-23] MEDS: LISINOPRIL 5 MG TABLET PO SCH (08:02)
[2016-10-23] MEDS: FAMOTIDINE 20 MG TABLET PO SCH (08:02)
[2016-10-23] MEDS: CELECOXIB 200 MG CAPSULE PO SCH (15:17)
[2016-10-23] MEDS: METOPROLOL TARTRATE 25 MG TABLET PO SCH (21:31)
[2016-10-23] MEDS: LOVASTATIN 20 MG TABLET PO SCH (21:32)
[2016-10-24 06:14] LABS: Basophils % 0.1 % (0.0-0.8); Eosinophils # 0.2 10*3/uL (0.0-0.87); Hematocrit 34.5 VOL% (35.7-47.0); Hemoglobin 11.9 GM/DL (12.0-16.0); Immature Granulocytes % 0.4 %; Immature Granulocytes Absolute 0.03 #; Lymphocytes # 1.7 10*3/uL (1.4-4.0); Lymphocytes % 21.2 % (21.3-54.2); Mean Corpuscular HGB Conc 34.5 GM/DL (32-36); Mean Corpuscular Hemoglobin 34 PG (27-34); Mean Corpuscular Volume 99.1 FL (87-102); Mean Platelet Volume 9.4 FL (9.6-12.0); Monocytes # 0.9 10*3/uL (0.11-0.8); Monocytes % 11.6 % (1.7-12.7); Neutrophils # 5.2 10*3/uL (1.4-7.4); Neutrophils % 64.7 % (38.7-73.9); Platelet Count 181 T/CUMM (130-400); Red Blood Count 3.48 MC/CUMM (3.8-5.5); Red Cell Distribution Width 13.5 % (9.3-17.3)
[2016-10-24 06:43] LABS: Hypochromasia Slight
--- NOTE | 2016-10-24 07:38 | Discharge Summary ---
Hospital Course - Hospital Course Hospital Course: Gabriela Cervantes was admitted after undergoing an uncomplicated right total hip arthroplasty. She received perioperative DVT and antimicrobial prophylaxis. She received physical therapy. She was discharged home in stable condition. Her dressing is clean, dry and intact. Right lower extremities neurovascularly unchanged. Discharge Plan - Discharge Data Disposition: Home Health Service Discharge Diet: advance to your usual diet Hygiene: may shower Weight Bearing at Discharge: weight bear as tolerated Driving: not until seen by doctor - Discharge Medications Continue Metoprolol Tartrate 25 mg PO BEDTIME Clopidogrel [Plavix] 75 mg PO DAILY Aspirin [Ecotrin] 81 mg PO DAILY Lisinopril 5 mg PO DAILY Famotidine 40 mg PO DAILY Citalopram Hydrobromide [Citalopram HBr] 40 mg PO DAILY Lovastatin 20 mg PO BEDTIME [place]-3 Fatty Acids [Fish Oil] 1,000 mg PO DAILY W/BREAKFAST Multivit-Min/FA/Lycopen/Lutein [Centrum Silver Tablet] 1 tablet PO DAILY Celecoxib [Celebrex] 200 mg PO DAILY Garlic 1,000 mg PO DAILY Ibuprofen 800 mg PO Q8HR PRN PRN Reason: Pain - Follow Up or Referral - Forms/Instructions Additional Discharge Instructions: Posterior hip precautions for 3 months. Daily dry dressing changes. Arrange for walker and bedside commode for home use. Wear AMY hose for 1 month. Follow-up appointment in 4 weeks. Discontinue sotero and Steri-Strip wound on November 04, 2015. Prescription for [place] 7.5 with 30 tablets was written. Exam - Constitutional Vitals: Period Temp Pulse Resp BP Sys/[place] Pulse Ox Last 24 Hr 96.0 F-98.1 F 64-75 16-20 95-160/47-77 92-97 Discharge Results Procedures and tests throughout hospitalization: Pending Orders 10/25/16 04:00 Comp Blood Count Auto Diff IN AM Labs on day of discharge: Labs from last 24 hours 10/24/16 05:39 WBC 8.0 RBC 3.48 L Hgb 11.9 L Hct 34.5 L MCV 99.1 MCH 34 MCHC 34.5 RDW 13.5 Plt Count 181 MPV 9.4 L Neut % (Auto) 64.7 Lymph % (Auto) 21.2 L [place] % (Auto) 11.6 Eos % (Auto) 2.0 Baso % (Auto) 0.1 Neut # (Auto) 5.2 Lymph # (Auto) 1.7 [place] # (Auto) 0.9 H Eos # (Auto) 0.2 Baso # (Auto) 0.0 Immature Gran % 0.4 Nucleated RBC % 0.0 Immature Gran # 0.03 Nucleated RBCs # 0.00 Hypochromasia Slight DS: Provider Date of admission: 10/22/16 05:36 Primary care physician: Gabriela Dorman DO Attending physician on admission: Jermain Durbin Jr., Consults: 10/22/16 09:58 Consult to Case Mgmt/Social Srvs [CONS] Routine Reason for Case Mgmt/Social Srvs: Rehab Home Health Equipment Consult Comment: Bedside Commode, CPM, Walker Consult to Occupational Therapy [CONS] Routine Reason for Occupational Therapy: Evaluate and Treat Consult Comment: ADL's Consult to Physical Therapy [CONS] Routine Reason for Physical Therapy: Evaluate and Treat Gait Training Start Therapy: Today Consult Comment: wbat, hip precautions Discharging clinician: Jermain Durbin Jr., Expected date of discharge: 10/24/16
[2016-10-24] MEDS: MULTIVITAMIN (CENTRUM) TABLET PO SCH (08:28)
[2016-10-24] MEDS: CITALOPRAM 40 MG TABLET PO SCH (08:28)
[2016-10-24] MEDS: CLOPIDOGREL 75 MG TABLET PO SCH (08:28)
[2016-10-24] MEDS: ASPIRIN EC 81 MG TABLET PO SCH (08:29)
[2016-10-24] MEDS: DOCUSATE SODIUM 100 MG CAPSULE PO SCH (08:29)
[2016-10-24] MEDS: FAMOTIDINE 20 MG TABLET PO SCH (08:29)
[2016-10-24] MEDS: CELECOXIB 200 MG CAPSULE PO SCH (08:29)
[2016-10-24] MEDS: LISINOPRIL 5 MG TABLET PO SCH (08:29)
[2016-10-24] MEDS: OMEGA 3 ACID ETHYL ESTERS 1 GM CAPSULE PO SCH (08:32)
[2016-10-24 11:41] VITALS: BP 134/72
--- NOTE | 2016-10-24 13:13 | Pathology Report from [facility] ---
[facility] ACCESSION # : [id number] PATIENT NAME : Aristeo Cervantes ORDERING DR : CRISTINA POWELL MD CLINICAL HX: Right hip osteoarthritis POST-OP DX: Same SPECIMEN INFO: Right hip bone and tissue GROSS DESCRIPTION: The specimen is received in formalin labeled with the patients name and consists of a femoral head measuring 4.7 x 4.6 x 4.9 cm with an area of subchondral eburnation seen measuring 3.2 x 2.2 cm. Cut surface is smooth with no softening appreciated. A inside sales representative tissue submitted in one cassette. DIAGNOSIS FOR ARISTEO CERVANTES: RIGHT HIP, TOTAL REPLACEMENT: Fragments of bone with degenerative joint disease/ osteoarthritis. Unremarkable hematopoietic marrow with no abnormal collections of blasts, plasma cell, lymphocytes or tumor cells seen. COLLECTED DATE: 10/22/2016 [facility] REPORT DATE: 10/23/2016 ELECTRONICALLY SIGNED BY: Ailyn Robb M.D. 10/23/2016 - 11:26:31 [id number]
== END 2016-10-24 12:44 | disposition home health service (06) | DRG 470 ==
LOC: N.SDSINP 05:36 → N.3E 11:24
PROVIDERS: ADMIT Orthopaedic Surgery; ATTEND Orthopaedic Surgery